=== PATIENT | female | born 1950 | race Caucasian/White ===

== ENCOUNTER 2019-02-05 17:54 | Observation (INO) | payer MEDICARE ==
[~2019-02-05] VITALS: Ht 154.9 cm; Wt 81.4 kg
--- NOTE | ~2019-02-05 | HEMODYNAMI ---
PATIENT:MISTY DUONG MEDICAL RECORD: [id number] : 52 LOCATION:[place] [address] ADMISSION DATE: 02/05/19 Generatedon:02/05/201919:44 Patient name: MISTY DUONG Patient #: [id number] SSN: : 1950 Date of study: 02/05/2019 Page: Of Hemodynamic Procedure Report Patient Data Patient Demographics Procedure consent was obtained First Name: MISTY Gender: Female Last Name: RHODA : 1950 Patient #: [id number] Age: 68 year(s) Race: Unknown Additional ID: [id number] Contact details [address]: [address] [place] [address] State: [place] City: [place] Zip code: [address] Past Medical History Allergies Allergen Reaction Date Comments Reported Other allergy 02/05/2019 morphine, sulfa, oxy Admission Admission Data Admission Date: 02/05/2019 Admission Time: 19:28 Admit Source: Emergency department Room #: [facility] Procedure Procedure Types Cath Procedure Diagnostic Procedure LHC Coronaries only Sedation Charges Moderate Sedation up to 30 minutes PCI Procedure AMI/SVG/CHILD CARE COORDINATOR PTCA or Stent AMI-BMS/LUNA Initial Procedure Description Procedure Date Procedure Date: 02/05/2019 Procedure Start Time: 18:42 Procedure End Time: 19:41 Procedure Staff Name Function Iam Corley MD Performing Physician Tika Sprague RT Monitor Rambo Kaminski RT Scrub Salomon Graf RN Nurse Procedure Data Cath Procedure Fluoroscopy Diagnostic fluoroscopy Total fluoroscopy Time: 9.3 time: 9.3 min min Diagnostic fluoroscopy Total fluoroscopy dose: 915 dose: 915 mGy mGy Contrast Material Contrast Material Type Amount (ml) Isovue 300 125 Entry Location Entry Primary Successful Side Size Upsize Upsize Entry Closure Succes sful Closure Location (Fr) 1 (Fr) 2 (Fr) Remarks Device Remarks Femoral Right 6 Fr Exoseal artery Short Estimated blood loss: 10 ml Procedure Complications No complications Procedure Medications Medication Administration Route Dosage 0.9% NaCl I.V. 100 ml/hr Oxygen etCO2 Nasal cannula 2 l/min Heparin Flush Bag added to field 2 bags (1000units/500ml NS) Lidocaine 2% added to field 20 Versed I.V. 0.5 mg Fentanyl I.V. 25 mcg Versed I.V. 0.5 mg Fentanyl I.V. 25 mcg Integrilin (Bolus I.V. 6.8 ml 2mg/ml) Integrilin (Bolus wasted 3.2 ml 2mg/ml) Zofran I.V. 4 mg Hemodynamics Rest Heart Rate: 86 (bpm) Snapshots Pre Cath Intra NCS Post Cath Vital Signs Time Heart Resp SPO2 etCO2 NIBP (mmHg) Rhythm Pain Sedation Rate (ipm) (%) (mmHg) Status Level (bpm) 18:41:02 87 18 93 0 153/98(128) NSR 0 (11) 10(A) , No pain 18:45:20 86 22 94 0 164/103(128) NSR 0 (11) 10(A) , No pain 18:49:38 82 17 94 0 168/103(142) NSR 0 (11) 10(A) , No pain 18:53:54 80 10 92 0 155/108(130) NSR 0 (11) 10(A) , No pain 18:58:12 84 14 93 0 167/108(142) NSR 0 (11) 10(A) , No pain 19:02:31 84 15 93 0 166/97(139) NSR 0 (11) 10(A) , No pain 19:06:49 90 12 90 0 165/91(125) NSR 0 (11) 10(A) , No pain 19:11:03 87 14 90 0 138/98(123) NSR 0 (11) 10(A) , No pain 19:15:15 85 16 89 0 154/92(127) NSR 0 (11) 10(A) , No pain 19:19:31 92 21 89 0 148/89(136) NSR 0 (11) 10(A) , No pain 19:23:45 86 19 88 0 143/89(120) NSR 0 (11) 10(A) , No pain 19:27:59 83 15 85 0 152/92(122) NSR 0 (11) 10(A) , No pain 19:32:13 82 18 86 0 147/93(124) NSR 0 (11) 10(A) , No pain 19:36:29 81 16 88 0 153/92(128) NSR 0 (11) 10(A) , No pain 19:40:28 0 No Cuff NSR 0 (11) 10(A) , No pain Medications Time Medication Route Dose Verified Delivered Reason Notes E ffectiveness by by 18:43:02 0.9% NaCl I.V. 100 Salomon Salomon Per ml/hr Homar Graf physician RN RN 18:43:12 Oxygen etCO2 2 Salomon Salomon for low 02 Nasal l/min Homar Graf sats cannula RN RN 18:43:24 Heparin Flush added 2 Salomon Salomon used for Bag to bags Homar Graf procedure (1000units/500ml field RN RN NS) 18:43:38 Lidocaine 2% added 20ml Salomon Salomon for local to vial Homar Graf anesthetic RN RN 18:49:34 Versed I.V. 0.5 Salomon Salomon for sedation mg Homar Graf RN RN 18:49:44 Fentanyl I.V. 25 Salomon Salomon for sedation mcg Homar Graf RN RN 18:51:28 Versed I.V. 0.5 Salomon Salomon for sedation mg Homar Graf RN RN 18:51:35 Fentanyl I.V. 25 Salomon Salomon for sedation mcg Homar Graf RN RN 19:01:01 Integrilin I.V. 6.8 Salomon Salomon for (Bolus 2mg/ml) ml Homar louie RN RN therapy 19:01:16 Integrilin wasted 3.2 Salomon Salomon to sharp's (Bolus 2mg/ml) ml Homar Graf RN RN 19:06:37 Zofran I.V. 4 mg Salomon Salomon for nausea Homar Graf RN tunnel elastic operator zigzag Log Time Note 18:20:33 Salomon Graf RN sent for patient. Start room use. 18:39:16 Informed consent obtained and on chart 18:39:19 Admit Source: Emergency department 18:39:31 Diagnostic Cath status Emergency 18:39:38 Time tracking: Call back (After hours or weekends) 18:39:49 Plan of Care:Hemodynamics will remain stable., Cardiac rhythm will remain stable., Comfort level will be maintained., Respiratory function will remain adequate., Patient/ family verbilizes understanding of procedure., Procedure tolerated without complication., Recovers from procedure without complications.. 18:39:53 Patient received from ED to CCL 1 Alert and oriented. Tansferred to table in Supine position. 18:39:54 Warm blankets applied, and rosetta hugger turned on for patient comfort. 18:39:54 Correct patient and procedure confirmed by team. 18:39:55 ECG and BP/O2 sat monitors applied to patient. 18:39:56 Vital chart was started 18:39:58 Baseline sample Acquired. 18:40:03 Rhythm: sinus rhythm , w/ ST elevation 18:40:04 Full Disclosure recording started 18:40:08 H&P Date Dictated: 02/05/2019 New H&P dictated by physician.. 18:40:08 Pre-procedure instructions explained to patient. 18:40:09 Pre-op teaching completed and patient verbalized understanding. 18:40:10 Family in waiting room. 18:40:12 Patient NPO since Lunch. 18:40:32 Patient allergic to Other allergymorphine, sulfa, oxy 18:40:35 Is the patient allergic to Iodine/contrast media? No. 18:40:42 Is patient on blood thinner?Yes 18:40:47 ACC The patient was administered the following blood thiners within the last 24 hours: ACCHeparin 18:40:49 Patient diabetic? No. 18:40:51 Previous problem with sedation/anesthesia? No ? 18:40:52 Snore? Yes 18:40:53 Sleep apnea? No 18:40:54 Deviated septum? No 18:40:55 Opens mouth fully? Yes 18:40:56 Sticks out tongue? Yes 18:41:03 Airway obstruction? No ? 18:41:06 Dentures? Yes in tight 18:41:10 Pre procedure: right dorsailis pedis pulse 2+ Normal; easily identifiable; not easily obliterated 18:41:19 Patient pain scale 0/10 ?. 18:41:27 IV patent on arrival in right hand with 0.9% NaCl at O. 18:41:29 Lab results completed and on chart. 18:41:31 Right groin area was prepped with chlora-prep and draped in sterile fashion 18:41:32 Alarms reviewed by R. N. 18:41:34 Sharps counted by scrub and verified by R.N. 18:41:36 Use device set Femoral Dx 18:41:37 ACIST Syringe (78656) opened to sterile field. 18:41:37 Bag Decanter (2002S) opened to sterile field. 18:41:37 Medline Cath Pack ([id number]) opened to sterile field. 18:41:39 ACIST Hand Control (78128) opened to sterile field. 18:41:39 ACIST Manifold (74375) opened to sterile field. 18:41:40 Tegaderm 4 x 4 (1626W) opened to sterile field. 18:41:43 DIAGNOSTIC WIRE .035 260cm J wire (627051) opened to sterile field. 18:41:43 DIAGNOSTIC Multipack 5Fr catheter set ([id number]) opened to sterile field. 18:41:52 INFLATOR Merit BasixCompak (OV3976) opened to sterile field. 18:41:52 SHEATH 6FR Moriarty (MXD070) opened to sterile field. 18:41:57 Physician arrived 18:41:58 --------ALL STOP TIME OUT------ 18:41:58 Final Timeout: patient, procedure, and site verified with staff and physician. All members of the team are in agreement. 18:42:00 Right groin site verified by team. 18:42:02 Maximum allowable Isovue 300 dose 300ml. Physician notified. (300ml for normal creatinines. For patients with creatinine of 1.7 or higher multiply weight(kg) x 5 divided by creatinine.) 18:42:05 Fire Safety Assessment: A--An alcohol-based skin anteseptic being used preoperatively., C--Open oxygen or nitrous oxide is being used., D--An ESU, laser, or fiber-optic light is being used. 18:42:09 Physical assessment completed. ASA score P 3 - A patient with severe systemic disease as per Iam Corley MD. 18:42:11 Sedation plan: IV Moderate Sedation Medication:Versed, Fentanyl 18:42:18 Procedure started. 18:42:21 Local anesthetic to right femoral artery with Lidocaine 2% by Iam Corley MD.INITIAL ACCESS ONLY 18:42:29 A 6 Fr Short sheath was inserted into the Right Femoral artery 18:43:02 0.9% NaCl 100 ml/hr I.V. was administered by Salomon Graf RN; Per physician; 18:43:12 Oxygen 2 l/min etCO2 Nasal cannula was administered by Salomon Graf RN; for low 02 sats; 18:43:24 Heparin Flush Bag (1000units/500ml NS) 2 bags added to field was administered by Salomon Graf RN; used for procedure; 18:43:38 Lidocaine 2% 20ml vial added to field was administered by Salomon Graf RN; for local anesthetic; 18:44:21 GUIDE 6FR JL 4.0 catheter ([id number]) opened to sterile field. 18:44:25 6 Fr JL 4.0 guide catheter was inserted over the wire 18:44:41 LCA angiography performed. 18:45:17 Guide catheter removed. 18:46:20 GUIDE 6FR JR 4.0 catheter ([id number]) opened to sterile field. 18:46:44 RCA angiography performed. 18:46:45 Guide catheter removed. 18:46:47 6 Fr JR 4 guide catheter was inserted over the wire 18:49:34 Versed 0.5 mg I.V. was administered by Salomon Graf RN; for sedation; 18:49:44 Fentanyl 25 mcg I.V. was administered by Salomon Graf RN; for sedation; 18:51:28 Versed 0.5 mg I.V. was administered by Salomon Grfa RN; for sedation; 18:51:35 Fentanyl 25 mcg I.V. was administered by Salomon Graf RN; for sedation; 18:54:12 Zero performed for pressure channel P1 19:00:44 WHISPER wire advanced. 19:01:01 Integrilin (Bolus 2mg/ml) 6.8 ml I.V. was administered by Salomon Graf RN; for antiplatelet therapy; 19:01:16 Integrilin (Bolus 2mg/ml) 3.2 ml wasted was administered by Salomon Graf RN; to sharp's; 19:02:44 Inflate balloon Inflation number: 2 A EMERGE OTW 3.0 x 15 balloon ([id number]) was prepped and advanced across the Mid RCA, then inflated to 10 BRYSON for 0:00 (min:sec). 19:02:56 Inflation number: 3 The EMERGE OTW 3.0 x 15 balloon ([id number]) was reinflated across the Mid RCA, to 0 BRYSON for 0:00 (min:sec). 19:03:10 Inflation number: 4 The EMERGE OTW 3.0 x 15 balloon ([id number]) was reinflated across the Mid RCA, to 10 BRYSON for 0:10 (min:sec). 19:04:51 Balloon removed over the wire. 19:06:37 Zofran 4 mg I.V. was administered by Salomon Graf RN; for nausea; 19:11:33 Place stent Inflation Number: 1 A INTEGRITY OTW 3.5 X 30 stent ([id number]) was prepped and advanced across the Mid RCA. The stent was deployed at 14 BRYSON for 0:10 (min:sec). 19:15:41 Stent catheter was removed intact over wire. 19:15:50 Place stent Inflation Number: 5 A INTEGRITY OTW 3.0 X 15 stent ([id number]) was prepped and advanced across the Mid RCA. The stent was deployed at 14 BRYSON for 0:10 (min:sec). 19:18:46 Stent catheter was removed intact over wire. 19:23:29 Sheath removed intact; hemostasis achieved with Exoseal to the Right Femoral artery. 19:23:31 Procedure ended.(Physican Out) 19:23:45 Use device set KARLSTAD PCI 19:23:59 WHISPER 300cm guide wire ([id number]) opened to sterile field. 19:34:33 Fluoroscopy time 09.30 minutes. 19:34:36 Flurop Dose total: 915 19:34:36 Fluoroscopy dose: 915 mGy 19:35:26 Contrast amount:Isovue 300 125ml. 19:37:32 Sharps counted by scrub and verified by R.N. 19:37:33 Insertion/operative site no bleeding no hematoma. 19:37:35 Post-op/insertion site Right Femoral artery dressed using a 4 x 4 and Tegaderm. 19:37:38 Post right femoral artery:stable, clean and dry 19:37:40 Post Procedure Pulses reassessed and unchanged 19:37:49 Femstop placed over the right femoral artery at 170 mmHg. Hemostasis achieved. 19:37:53 FEMSTOP Gold ([id number]) opened to sterile field. 19:37:55 EXOSEAL 6Fr (EX600) opened to sterile field. 19:38:37 Post-procedure physical assessment completed. ASA score P 3 - A patient with severe systemic disease as per Iam Corley MD. 19:38:47 Post procedure rhythm: unchanged. 19:38:50 Estimated blood loss: 10 ml 19:38:51 Post procedure instruction explained to patient.Patient verbalizes understanding. 19:38:51 Patient needs reinforcement of post procedure teaching. 19:38:59 Procedure type changed to Cath procedure, Diagnostic procedure, LHC, Coronaries only, Sedation Charges, Moderate Sedation up to 30 minutes, PCI procedure, AMI/SVG/CHILD CARE COORDINATOR PTCA or Stent, AMI-BMS/LUNA Initial 19:39:24 Procedure Complication : No complications 19:39:26 See physician's report for complete and final results. 19:39:29 Report given to CVICU. 19:39:32 Patient transfered to CVICU with Bed. 19:41:47 Procedure and supply charges have been captured, reviewed, submitted and are correct. 19:41:47 Vital chart was stopped 19:41:49 Procedure ended. 19:41:49 Full Disclosure recording stopped 19:41:52 End room use (Document Last) Intervention Summary Intervention Notes Time ActionType Lesion and Equipment Action# Pressure Duration Attributes Used 19:02:44 Inflate Mid RCA EMERGE OTW 2 10 00:00 balloon 3.0 x 15 balloon ([id number]) 19:02:56 Reinflate Mid RCA EMERGE OTW 3 0 00:00 balloon 3.0 x 15 balloon ([id number]) 19:03:10 Reinflate Mid RCA EMERGE OTW 4 10 00:10 balloon 3.0 x 15 balloon ([id number]) 19:11:33 Place stent Mid RCA INTEGRITY 1 14 00:10 OTW 3.5 X 30 stent ([id number]) 19:15:50 Place stent Mid RCA INTEGRITY 5 14 00:10 OTW 3.0 X 15 stent ([id number]) Device Usage Item Name Manufacture Quantity Catalog Number Hospital Part Current Min imal Lot# / Charge Number Stock Stock Serial# Code ACIST Acist 1 47660 652231 696591 904259 20 Mithridion (11055) Systems Inc Bag Decanter Microtek 1 2001S 899878 23869 945687 5 (2001S) Medical Inc. Medline Cath Medline 1 [id number] 316869 41230 383461 5 Pack ([id number]) ACIST Hand Acist 1 52204 447346 787259 277822 5 Control Medical (44987) Systems Inc ACIST Acist 1 74160 385697 625372 047374 5 Manifold Medical (79322) Systems Inc Tegaderm 4 x 3M 1 1626W 070590 607800 849015 5 4 (1626W) DIAGNOSTIC St Doc 1 121046 966736 753953 204669 30 WIRE .035 260cm J wire (843745) DIAGNOSTIC Cardinal 1 JS9713 459028 66776 413840 30 Isotera 5Fr catheter set (JP0233) INFLATOR Microbonds 1 LP0949 695582 491502 270838 15 Microbonds Medical BasixCompak (CW4674) SHEATH 6FR Terumo 1 XQA620 539877 391981 677059 40 Moriarty (GJU456) INTEGRITY Medtronic 1 [id number] 668647 165775 414523 6 [id number] OTW 3.5 X 30 stent ([id number]) EMERGE OTW [place] 1 [id number] 187149 498676 481357 5 [id number] 3.0 x 15 Scientific balloon ([id number]) WHISPER Barnes 1 [id number] 539437 039824 088697 5 300cm guide Vascular wire ([id number]) GUIDE 6FR JR Medtronic 1 [id number] 018629 35078 955131 1 4.0 catheter (UD0HH56) GUIDE 6FR JL Medtronic 1 FL0BX00 500390 41909 298454 1 4.0 catheter (ZF3TP52) INTEGRITY Medtronic 1 [id number] 961487 735481 772554 0 [id number] OTW 3.0 X 15 stent ([id number]) FEMSTOP Gold St Doc 1 I44827 111816 538911 126304 5 (G22168) EXOSEAL 6Fr Cardinal 1 EX600 647318 884500 332886 10 (EX600) Health Signature Audit Twilight Stage Time Signature Unsigned Intra-Procedure 02/05/2019 Itka 7:44:45 PM Counts RT(R) Signatures Monitor : Tika Signature : Counts RT Date : Time : [address] [place] [address]
[2019-02-05] MEDS ORDERED: LISINOPRIL10 MG PO (17:59)
--- NOTE | 2019-02-05 18:24 | NUR ---
MARGOT, RESP THER RN HERE AT BS. REPORT GIVEN. PT TXDTO RESP THER VIA STRETCHER WITH HEPARING GTT INFUSING
[2019-02-05 18:25] VITALS: BP 147/95
[2019-02-05 18:25] LABS: BASOPHILS 0.2 % (0-2); EOSINOPHILS 0.5 % (0-7); HEMATOCRIT 38.1 % (36.0-48.0); HEMOGLOBIN 13.2 g/dL (12-16); IMMATURE GRANULOCYTES 0.2 % (0-5); MCHC 34.6 g/dL (31.0-37.0); MCV 92.3 fL (80.0-100.0); MEAN PLATELET VOLUME 9.7 fL (7.4-10.4); MONOCYTES 9.2 % (2-11); NEUTROPHILS 68.9 % (40-80); PLATELET COUNT 277 10x3/uL (130-400); RBC 4.13 10x6/uL (4.00-5.40); RDW 13.5 % (11.5-14.5); WBC 12.8 10x3/uL (4.8-10.8)
[2019-02-05 18:35] LABS: ANION GAP 17.9 mmol/L (8-16); CARBON DIOXIDE 17.8 mmol/L (21.0-32.0); CREATININE - SERUM 0.9 mg/dL (0.6-1.3); POTASSIUM - SERUM 3.7 mmol/L (3.5-5.1)
[2019-02-05 20:00] VITALS: BP 143/88
[2019-02-05] MEDS ORDERED: LIPITOR20 MG PO (20:31)
[2019-02-05] MEDS ORDERED: MULTI-DAY VITAM1 TAB PO (20:31)
[2019-02-05 20:58] VITALS: BP 151/88; Ht 154.9 cm; Wt 81.4 kg
[2019-02-05 21:00] VITALS: BP 136/79
[2019-02-05 22:00] VITALS: BP 154/70
[2019-02-05 23:00] VITALS: BP 152/89
[2019-02-06] VITALS (12 sets, daily range): BP systolic 106–149; BP diastolic 63–85
[2019-02-06] MEDS ORDERED: COREG6.25 MG PO (11:44)
[2019-02-06] MEDS ORDERED: LIPITOR40 MG PO (11:45)
[2019-02-06] MEDS ORDERED: PLAVIX75 MG PO (11:45)
--- NOTE | 2019-02-06 12:55 | NUR ---
0715-RECIEVED AWAKE AND ALERT-ANXIOUS TO LEAVE-R GROIN SOFT TO TOUCH-PLACED ON PORTABLE TELEMETRY-REMOVED O2-SALINE LOCKED IV-PT DENIES ANY PAIN-ENCOURAGED TO WALK AROUND IN RM- 0830-DR HANCOCK AT BEDSIDE-R GROIN SOFT-STRONG PP-SPOKE WITH PT REGARDING FINDINGS-STRESSED CHOLESTEROL -PT ARGUMENTATIVE-STATING WAS TOLD HER CHLESTEROL WAS NORMAL-DR HANCOCK ATTEMPTED TO STRESS BLOOD RANGE MIGHT BE WITH NORMAL-BUT CHOLESTEROL PRESENT IS STILL AN ISSUE FOR -PT VOCALIZED THE GARCIA DIET SHE STARTED WAS THE CAUSE-DR HANCOCK CONTINUED TO CORRECT AND ENCOURAGED WEIGHT LOSS MEAL PLAN 0900-STRESSED TO PT TO AMBULATE IN [place] ON TELEMETRY AND PULSE OXIMETRY TO MONITOR HEART PATTERN RATE AND OXYGEN-STRESSED TO ST [facility] WILL RETURN MID DAY TO REASSESS IF ABLE TO GO HOME 0915-AMBULATED AND RETURNED TO RM SAT-94%-HR 98-EXPLAINED TO PATIENT IMPORTANCE OF PLAVIX MEDICATION AND TO TAKE EVERY DAY-PT APPEARED TO UNDERSTAND 1015-AMBULATED IN ROOM 1100-AMBULATED IN [place]- 1200-DR HANCOCK AT BEDSIDE-SPOKE WITH PT REGARDING MEDICATIONS AND FOLLOW UP PLAN-PERIPHERAL IV D/C-R GROIN REMAINS SOFT AND NO HEMATOMA-DISCHARGE INSTRUCTIONS REVIEWED WITH PT -NOTED SEVERE WEATHER WARNINGS ALONG TRAVEL PATH HOME AND STRESSED CAN STAY FOR LONG NEEDED-REFUSED 1310-PT LEFT UNIT VIA WHEELCHAIR-AGAIN OFFERED TO CAN TURN AROUND AND RETURN TO HOSPITAL ROOM IF TRAVEL CONDITIONS BECOME UNSAFE-STATED HE APPRECIATED
--- NOTE | 2019-02-08 10:07 | HP ---
PATIENT: MISTY DUONG MEDICAL RECORD: [id number] ACCOUNT: [id number] LOCATION:[facility].CV04 : 52 ADMISSION DATE: 02/05/19 PCP: MILENA GRIFFIN MD HISTORY AND PHYSICAL EXAMINATION HISTORY OF PRESENT ILLNESS: A 68-year-old female with history of hypertension, 3-day history of chest pain, tightness, waxing and waning course, finally presented to the [facility] ER, found to have inferior myocardial infarctions, received TPA, continued to have chest pain, ST elevation, was being brought to the cork slabs sawyer on an urgent basis. PAST MEDICAL HISTORY: Includes history of hypertension. ALLERGIES: CODEINE, OXYCODONE. MEDICATIONS: Lisinopril 10 mg daily. PHYSICAL EXAMINATION: GENERAL: Middle-aged female. Mild distress. VITAL SIGNS: 112/64, pulse 84 and regular. HEENT: Normocephalic, atraumatic. NECK: No bruits noted. HEART: Regular, S4 gallop. LUNGS: Fair air excursion. ABDOMEN: Soft, nontender. EXTREMITIES: Pulses 1+ with no edema. IMPRESSION: Continued chest pain, ST elevation post-thrombolytic, cork slabs sawyer with an urgent basis for salvage angioplasty. TRANSINT:[id number] Voice Confirmation ID: [id number] DOCUMENT ID: [id number] PAPO HANCOCK MD at 1007 CC: [id number] DICTATION DATE: 02/05/191933 MACHINIST WOOD: 02/05/192214 DIS IN 02/06/19 [place] [address] [place] [address]
--- NOTE | 2019-02-08 10:07 | DS ---
PATIENT:PAM MYRICK :52 MEDICAL RECORD: [id number] DISCHARGE SUMMARY ADMISSION DATE: 02/05/19 DISCHARGE DATE: 02/06/19 HOSPITAL COURSE: Pam Myrick is a 68-year-old female was transferred via [facility] from [place] with ST elevation myocardial infarction, underwent an urgent PTCA and stenting to the right coronary, was started postoperatively on aspirin, Plavix, statin as well as beta blockade, has residual disease of the circumflex, would be re-intervened upon at a later date. Discharged home in good condition. ACTIVITY: As tolerated. DIET: AHA diet. TRANSINT:[id number] Voice Confirmation ID: [id number] DOCUMENT ID: [id number] PAPO HANCOCK MD at 1007 CC: [id number] DICTATION DATE: 02/06/19 1137 SOFTWARE QUALITY TEST ENGINEER: 02/07/19 1431 DIS IN 02/06/19 [place] [id number] [place] [address]
--- NOTE | 2019-02-08 10:07 | OP ---
PATIENT NAME: MISTY DUONG MEDICAL RECORD: [id number] :52 LOCATION:[facility] ADMISSION DATE:02/05/19 SURGEON: PAPO HANCOCK MD DATE OF OPERATION: 02/05/2019 PROCEDURES: Left heart catheterization, selective coronary angiography, PTCA and stent of the right coronary, right femoral artery approach. CATHETERS: A 6-[place]izen [place] sheath, 6-[place] guide on the left and right system both. Procedure was well tolerated, proceeded immediately to urgent PTCA and stenting of the right coronary. FINDINGS: Left ventriculography not performed. CORONARY ANATOMY: LEFT MAIN: Left main remains free of disease. LAD: Small diagonal at the ostium portion, has about 80% stenosis. CIRCUMFLEX: Circumflex at the takeoff has a small OM and has about 80% stenosis. RIGHT CORONARY ARTERY: Totally occluded fills faintly via left to right collaterals. IMPRESSION: Acute inferior myocardial infarction, totally occluded right and intervention momentarily. DESCRIPTION OF THE PROCEDURE: A 5-[place] sheath was exchanged for a 6-[place]. JR4 guiding catheter provided good guide catheter support, followed by 300-cm Whisper wire was placed across the totally occluded right down the first vessel. Initial predeployment balloon was a 25 x 15 mm [place]. This was inflated up and down the totally occluded right coronary. Additionally, using the [place] as an exchange catheter, we removed the Whisper wire and placed a PT export wire. Stents were placed in the following fashion: A distally 3.0 x 15 mm Integrity vyf-[id number]-[id number] stent and approximately 35 x 30 mm Integrity riz-conx-aimmdvo stent up to 14 atmospheres with each inflation is lasting 45 seconds. Final angiography shows excellent resolution of 100% stenosis, no significant residual. ERIKA flow improved from 0 to 3. Integrilin was used during the case. Sheath was closed with the ExoSeal device. Plavix will be loaded. Intervention to the left system at a later date. TRANSINT:[id number] Voice Confirmation ID: [id number] DOCUMENT ID: [id number] PAPO HANCOCK MD at 1007 CC: [id number] DICTATION DATE: 02/05/191936 SERVICE COORDINATOR ELDERLY FACILITY: 02/06/19 0214 DIS IN 02/06/19 [facility] [address] [place] [address]
== END 2019-02-06 13:22 | disposition home or self-care (01) ==
LOC: D.ER 17:54 → OBSVTIME 19:28 → D.CVICU 19:28
PROVIDERS: ADMIT Internal Medicine Interventional Cardiology; ATTEND Internal Medicine Interventional Cardiology
DX: I21.19 ST elevation (STEMI) myocardial infarction involving other coronary artery of inferior wall (principal); I10 Essential (primary) hypertension; F17.200 Nicotine dependence, unspecified, uncomplicated

== ENCOUNTER 2019-02-22 11:50 | Outpatient (CLI) | payer MEDICARE | END 2019-02-22 17:30 | disposition home or self-care (01) | LOC: D.CATH 11:50 | DX: I25.10 Atherosclerotic heart disease of native coronary artery without angina pectoris (principal); I10 Essential (primary) hypertension; E78.5 Hyperlipidemia, unspecified ==